=== PATIENT | female | born 1995 | race Caucasian/White ===

== ENCOUNTER 2024-08-24 15:40 | Emergency (ER) | payer BC, SELFPAY ==
[2024-08-24 15:45] VITALS: BP 126/90
[2024-08-24 17:20] LABS: Urine Albumin Negative (Neg - Trace); Urine Bilirubin Negative (Negative); Urine Character Clear (Clear); Urine Color Straw; Urine Glucose Negative (Negative); Urine Ketone Negative (Negative); Urine Leukocyte Negative (Negative); Urine Nitrite Negative (Negative); Urine Occult Blood Negative (Negative); Urine Specific Gravity 1.005 (<1.030); Urine Urobilinogen Negative (Neg - 1+)
[2024-08-24 17:27] LABS: % Basophils 0.3 % (0-2); % Eosinophils 0.9 % (0-6); % Immature Granulocytes 0.3 % (0-0.5); % Lymphocytes 27.8 % (20.5-51.1); % Neutrophils 65.7 % (42.2-75.2); Absolute Eosinophils 0.1 10^3/uL (0-0.7); Absolute Lymphocytes 3.2 10^3/uL (1.2-3.4); Absolute Monocytes 0.6 10^3/uL (0.1-0.6); Absolute Neutrophils 7.6 10^3/uL (1.4-6.5); Hematocrit 38.3 % (37.0-47.0); Hemoglobin 13.2 g/dL (12.0-16.0); Mean Corp Hgb Conc. 34.5 g/dL (33.0-37.0); Mean Corpuscular Hgb 32.4 pg (27.0-31.0); Mean Corpuscular Volume 93.9 fL (81.0-99.0); Mean Platelet Volume 10.4 fL (7.4-10.4); Nucleated Red Blood Cells % 0 %; Platelet Count 247 10^3/uL (130-400); Red Blood Cell Count 4.08 10^6/uL (4.20-5.40); Red Cell Dist. Width 12.8 % (11.5-14.5); White Blood Cell Count 11.5 10^3/uL (4.8-10.8)
[2024-08-24 17:46] LABS: ALT (SGPT) 20 U/L (0-35); AST (SGOT) 20 U/L (14-36); Albumin 4.3 g/dl (3.5-5.0); Alkaline Phosphatase 52 U/L (38-126); Blood Urea Nitrogen 8 mg/dl (7-17); Calcium 9.3 mg/dl (8.4-10.2); Carbon Dioxide 25 mmol/L (22-30); Chloride 106 mmol/L (98-107); Glucose 85 mg/dl (70-99); Potassium 4.2 mmol/L (3.5-5.1); Sodium 139 mmol/L (135-145); Total Bilirubin 0.3 mg/dl (0.2-1.3); Total Protein 6.9 g/dl (6.3-8.2); eGFR > 60.00
--- NOTE | 2024-08-24 17:59 | ED.GENMED ---
History of Present Illness
<JANIA Oneal - Last Filed: 08/24/24 18:56>
General
Chief Complaint: Vomiting Blood
Source: patient
Time Seen by Provider: 08/24/24 17:43
History of Present Illness
History of Present Illness:
Pt is a 28 yo F at 12 weeks gestation with no significant PMH who presents to the ED c/o hematemesis and hematuria x 1 day. Patient explains that she was dry heaving this morning and noticed once blood-tinged sputum produced from dry heave. When she
walked to the next room and urinated, she noticed a small blood clot in the toilet. She is following IVF treatment and is therefore considered 'high-risk'. She is feeling some lower abdominal cramping, mostly on her left side, which has
been constant throughout today, and she endorses some blurry vision sporadically throughout her , which her digital measurement advisor ([facility]) notes can be normal in . She denies any syncope, weakness, LARSEN, or other associated symptoms at this
time.
Review of Systems
<JANIA Oneal - Last Filed: 08/24/24 18:56>
Review of Systems
All Other Systems: ROS reviewed and negative except as documented in HPI and ROS
Phy Exam
<JANIA Oneal - Last Filed: 08/24/24 18:56>
General Physical Exam
General Presentation: well appearing
General age: appears stated age
Cardiovascular Exam
Cardiovascular Exam: regular rate/rhythm
Pulmonary Exam
Pulmonary Exam: lungs clear
Gastrointestinal Exam
Gastrointestinal Exam: normal bowel sounds and soft
Palpation: left upper quadrant: No tenderness, left lower quadrant: No tenderness, right upper quadrant: No tenderness and right lower quadrant: Minimal tenderness
Course
<JANIA Oneal - Last Filed: 08/24/24 18:56>
Orders/Labs/Results
Orders:
Orders
08/24/24 15:54
1st Trimester US [US 1st Trimester] Urgent
Comment:
Reason For Exam: abd cramping, blood tinged urine, 12 weeks pregnan
08/24/24 17:13
Urinalysis Reflex To Culture Urgent
Date Specimen was Collected: 08/24/24
Time Specimen was Collected: 15:56
08/24/24 17:18
Complete Blood Count/With Diff Urgent
Comprehensive Metabolic Panel Urgent
08/24/24 18:51
Type+Screen Urgent
08/24/24 19:01
* Blood Bank Products Urgent
Blood Bank Products: *Rhogam - Full Dose
Quantity: 300mg
Transfuse Today: Yes
Reason: Other
Other reason: Vaginal bleeding/miscarriage
Rho (D) Immune Globulin [Rhogam] 300 mcg IM ONCE ONE
08/24/24 19:13
ABO2 Urgent
BBK Wristband Number:
Associate notified that ABO2 has been ordered: [id number]
Date: 08/24/24
Time: 18:56
Researcher ID: [id number]
Abnormal Lab Results
08/24/24
17:18
WBC 11.5 H 10^3/uL
(4.8-10.8)
RBC 4.08 L 10^6/uL
(4.20-5.40)
MCH 32.4 H pg
(27.0-31.0)
Absolute Neuts (auto) 7.6 H 10^3/uL
(1.4-6.5)
Creatinine 0.5 L mg/dL
(0.6-1.0)
08/24/24 17:18
08/24/24 17:18
Vital Signs
Initial and Last Documented VS:
Initial Vital Signs
Temp Pulse Resp BP Pulse Ox
98.7 F 106 18 126/90 99
08/24/24 15:45 08/24/24 15:45 08/24/24 15:45 08/24/24 15:45 08/24/24 15:45
Last Documented Vital Signs
Temp Pulse Resp BP Pulse Ox
98.7 F 86 16 126/68 97
08/24/24 15:45 08/24/24 20:19 08/24/24 20:19 08/24/24 20:19 08/24/24 20:19
<Derrick Emerson, DO - Last Filed: 08/24/24 20:29>
Orders/Labs/Results
Orders:
Orders
08/24/24 15:54
1st Trimester US [US 1st Trimester] Urgent
Comment:
Reason For Exam: abd cramping, blood tinged urine, 12 weeks pregnan
08/24/24 17:13
Urinalysis Reflex To Culture Urgent
Date Specimen was Collected: 08/24/24
Time Specimen was Collected: 15:56
08/24/24 17:18
Complete Blood Count/With Diff Urgent
Comprehensive Metabolic Panel Urgent
08/24/24 18:51
Type+Screen Urgent
08/24/24 19:01
* Blood Bank Products Urgent
Blood Bank Products: *Rhogam - Full Dose
Quantity: 300mg
Transfuse Today: Yes
Reason: Other
Other reason: Vaginal bleeding/miscarriage
Rho (D) Immune Globulin [Rhogam] 300 mcg IM ONCE ONE
08/24/24 19:13
ABO2 Urgent
BBK Wristband Number:
Associate notified that ABO2 has been ordered: [id number]
Date: 08/24/24
Time: 18:56
Researcher ID: [id number]
Abnormal Lab Results
08/24/24
17:18
WBC 11.5 H 10^3/uL
(4.8-10.8)
RBC 4.08 L 10^6/uL
(4.20-5.40)
MCH 32.4 H pg
(27.0-31.0)
Absolute Neuts (auto) 7.6 H 10^3/uL
(1.4-6.5)
Creatinine 0.5 L mg/dL
(0.6-1.0)
08/24/24 17:18
08/24/24 17:18
Vital Signs
Initial and Last Documented VS:
Initial Vital Signs
Temp Pulse Resp BP Pulse Ox
98.7 F 106 18 126/90 99
08/24/24 15:45 08/24/24 15:45 08/24/24 15:45 08/24/24 15:45 08/24/24 15:45
Last Documented Vital Signs
Temp Pulse Resp BP Pulse Ox
98.7 F 86 16 126/68 97
08/24/24 15:45 08/24/24 20:19 08/24/24 20:19 08/24/24 20:19 08/24/24 20:19
<Derrick Emerson DO - Last Filed: 08/24/24 20:29>
MDM/Problems Addressed
Differential Diagnosis Includes:
Esophageal tear, hypovolemia, miscarriage, ectopic
MDM/Problems Addressed:
28-year-old female with episode of vaginal bleeding and hematemesis, likely due to esophageal tear from retching. Abdomen is benign. Ultrasound shows intrauterine . Patient is O- and will require RhoGAM. at 12 weeks.
<JANIA Oneal - Last Filed: 08/24/24 18:56>
*Critical Care Note
Total Time (30-74mins, 75-104mins- exclusive of procedures): Not Applicable
<Derrick Emerson DO - Last Filed: 08/24/24 20:29>
*Radiology
Radiology exam reviewed: radiology read reviewed (Ultrasound shows soto IUP 12 weeks 4 days FHT 152)
*Pulse Oximetry
Patient hypoxic: no
<Derrick Emerson, - Last Filed: 08/24/24 20:29>
Patient Management
Social determinants of health affecting care: Living situation and Strong social support
Escalation/DeEscalation of care consider admission/obs:
Admit indicated
ED Attending Note
<JANIA Oneal - Last Filed: 08/24/24 18:56>
-
Portions of this chart may have been created with voice recognition software.� Occasional wrong word or��sound alike� substitutions may have occurred due to the inherent limitations of voice recognition software.
<Derrick Emerson, - Last Filed: 08/24/24 20:29>
ED Attending Note
Patient seen and examined by attending physician: Yes
I performed a history and physical exam of patient and discussed management with resident, I reviewed resident's note and agree with documented findings and plan of care.: Yes
ED Attending Note:
I have reviewed and agree with history and treatment plan by Sumaya Lancaster. My exam revealed 28-year-old female in no acute distress, ab exam benign. RhoGAM shot and then discharged follow-up with FIELD SERVICE REP.
Discharge Plan
Departure
Patient Disposition: Home (Routine Discharge)
Date of Disposition: 08/24/24
Time of Disposition: 20:23
Patient with high blood pressure during this ER visit?: Yes
Condition: Good
Discharge Problem:
Miscarriage, threatened, early , Hematemesis with nausea, Need for rhogam due to Rh negative mother
Instructions: Nausea and Vomiting, Adult (DC), Bleeding in early - ED discharge instructions, BLOOD PRESSURE
Prescriptions:
New
ondansetron 4 mg tablet,disintegrating
4 mg PO Q8H PRN (Reason: nausea and vomiting) 4 Days Qty: 10 0RF
Referrals:
UNKNOWN - PT DOES,NOT KNOW [Family Provider] -
Activity Restrictions/Additional Instructions:
Follow-up with FIELD SERVICE REP and digital measurement advisor. Return for any concerns.
Interventions
Interventions:
*Risk Screen - Suicide Last Done: 08/24/24 15:45
*General Assessment Last Done: 08/24/24 15:45
*Neglect/Abuse Screening Last Done: 08/24/24 18:54
*ED- Fall Risk Assessment Last Done: 08/24/24 18:58
*ED COVID-19 Vaccine History Last Done: 08/24/24 18:58
AJ-Wdlpir-Fqtzfubspe Assessment Last Done: 08/24/24 18:53
ED- Cardiac Assessment Last Done: 08/24/24 18:53
ED- Pulmonary Assessment Last Done: 08/24/24 18:53
Discharge Date and Time
Print Language: [place]
[2024-08-24 18:58] VITALS: BMI 44.0
[2024-08-24] MEDS: RHOGAM 300 MCG IM (20:11)
[2024-08-24 20:19] VITALS: BP 126/68
[2024-08-24] MEDS: ZOFRAN ODT (ORALLY DISINTEGRATING) 4 MG PO (20:32)
== END 2024-08-24 20:45 | disposition home or self-care (01) ==
LOC: EMR 15:40
PROVIDERS: EMERGENCY PHYSICIAN Emergency Medicine
DX: O99.891 Other specified diseases and conditions complicating pregnancy (principal); O20.0 Threatened abortion; O99.611 Diseases of the digestive system complicating pregnancy, first trimester; K92.0 Hematemesis; O36.0910 Maternal care for other rhesus isoimmunization, first trimester, not applicable or unspecified; Z29.13 Encounter for prophylactic Rho(D) immune globulin; Z3A.12 12 weeks gestation of pregnancy
CPT/HCPCS: 96372; 99284; 76801; 80053; 81003; 85025; 86850; 86900; 86901; J2790

== ENCOUNTER → 2024-08-28 13:19 | Outpatient (REF) | payer BC, SELFPAY | LOC: PNTC 13:19 | PROVIDERS: ATTENDING PHYSICIAN Obstetrics & Gynecology | DX: Z36.0 Encounter for antenatal screening for chromosomal anomalies (principal); Z36.82 Encounter for antenatal screening for nuchal translucency | CPT/HCPCS: 76801; 76813 ==

== ENCOUNTER → 2024-09-23 06:50 | Outpatient (REF) | payer BC, SELFPAY | LOC: PNTC 06:50 | PROVIDERS: ATTENDING PHYSICIAN Obstetrics & Gynecology | DX: O09.819 Supervision of pregnancy resulting from assisted reproductive technology, unspecified trimester (principal) | CPT/HCPCS: 76805 ==

== ENCOUNTER 2024-09-29 09:26 | Emergency (ER) | payer BC, SELFPAY ==
[2024-09-29 09:30] VITALS: BP 145/76
[2024-09-29 09:53] LABS: % Basophils 0.2 % (0-2); % Eosinophils 1.2 % (0-6); % Immature Granulocytes 0.4 % (0-0.5); % Lymphocytes 16.7 % (20.5-51.1); % Monocytes 2.6 % (1.7-9.3); % Neutrophils 78.9 % (42.2-75.2); Absolute Eosinophils 0.1 10^3/uL (0-0.7); Absolute Immature Granulocytes 0.1 10^3/uL (0-0.05); Absolute Monocytes 0.3 10^3/uL (0.1-0.6); Absolute Neutrophils 9.5 10^3/uL (1.4-6.5); Hematocrit 36.7 % (37.0-47.0); Hemoglobin 12.6 g/dL (12.0-16.0); Mean Corp Hgb Conc. 34.3 g/dL (33.0-37.0); Mean Corpuscular Hgb 31.6 pg (27.0-31.0); Mean Platelet Volume 10.2 fL (7.4-10.4); Nucleated Red Blood Cells % 0 %; Platelet Count 235 10^3/uL (130-400); Red Blood Cell Count 3.99 10^6/uL (4.20-5.40); Red Cell Dist. Width 12.5 % (11.5-14.5)
[2024-09-29 10:19] LABS: ALT (SGPT) 24 U/L (0-35); AST (SGOT) 20 U/L (14-36); Albumin 3.6 g/dl (3.5-5.0); Alkaline Phosphatase 55 U/L (38-126); Blood Urea Nitrogen 9 mg/dl (7-17); Calcium 9.4 mg/dl (8.4-10.2); Carbon Dioxide 21 mmol/L (22-30); Chloride 110 mmol/L (98-107); Glucose 134 mg/dl (70-99); Potassium 3.9 mmol/L (3.5-5.1); Sodium 139 mmol/L (135-145); Total Bilirubin 0.3 mg/dl (0.2-1.3); Total Protein 6.2 g/dl (6.3-8.2); eGFR > 60.00
[2024-09-29 10:57] VITALS: BMI 41.6
[2024-09-29 11:10] LABS: Urine Albumin Negative (Neg - Trace); Urine Bilirubin Negative (Negative); Urine Character Clear (Clear); Urine Color Yellow; Urine Glucose Negative (Negative); Urine Ketone Negative (Negative); Urine Leukocyte Negative (Negative); Urine Nitrite Negative (Negative); Urine Occult Blood 3+ (Negative); Urine Urobilinogen Negative (Neg - 1+)
[2024-09-29 11:19] LABS: Urine Squamous Cell >30 /LPF (Few); Urine Urothelial Cell 0-2 /LPF (FEW)
[2024-09-29 11:21] LABS: Urine Red Blood Cell 0-2 /HPF (0-2)
--- NOTE | 2024-09-29 11:25 | ED.GENMED ---
History of Present Illness
General
Chief Complaint: Problems
Source: patient and spouse
Exam Limitations: none
Time Seen by Provider: 09/29/24 10:30
Nursing documentation reviewed up to this point in time: agreed with
History of Present Illness
History of Present Illness:
Patient G1, P0, currently 17 weeks via IVF, presents to ED secondary to intermittent episodes of noticing blood when wiping after urination, over the past 3 days. Prior to onset of her symptoms, patient does report engaging in sexual
intercourse with her partner. Denies fever or chills. Denies vomiting. Denies seeing blood clots or significant amount of blood in the toilet. Patient's last ultrasound was 1 week ago, which was normal. Patient has appointment with her [facility]
physician in 1 week. Denies coughing. Denies recent illness. Patient is still experiencing morning sickness, but has been able to eat. Denies weight loss. Denies back pain. Denies difficulty with urination.
Review of Systems
Review of Systems
Allergies reviewed?: Yes
All Other Systems: ROS reviewed and negative except as documented in HPI and ROS
Constitutional: Reports no symptoms
ABD/GI: Reports abdominal pain; Denies vomiting or bloody stools
: Reports bleeding; Denies dysuria, frequency or difficulty voiding
Musculoskeletal: Reports no symptoms
Skin: Reports no symptoms
Neurological: Reports no symptoms
Phy Exam
Physical Exam
Physical Exam:
Physical Exam
General: no apparent distress, not acutely ill. afebrile
Head: nc/at. eomi
Neck: supple. no meningeal signs.
Heart: s1/s2 regular rate and rhythm
Lungs: no acute respiratory distress. clear bilaterally
Abdomen: normal bowel sounds. not tender.
Neuro: alert and oriented x 3. no focal neurological deficits
Skin: no rash
Psychiatric: well kept. interactive and cooperative
Extremities: no edema. no calf tenderness.
Course
Orders/Labs/Results
Orders:
Orders
09/29/24 09:39
US Limited Urgent
Comment: for placement services
Reason For Exam: vaginal bleeding, 17 wks
09/29/24 09:43
Complete Blood Count/With Diff Urgent
Comprehensive Metabolic Panel Urgent
HCG, Beta Quantitative [Beta HCG Quantitative] Urgent
Is this a screen?: No
09/29/24 11:01
Urinalysis Reflex To Culture Urgent
Date Specimen was Collected: 09/29/24
Time Specimen was Collected: 10:57
Urine Microscopic Reflex Cult Urgent
09/29/24 12:47
Rho (D) Immune Globulin [Rhogam] 300 mcg IM ONCE ONE
Abnormal Lab Results
09/29/24 09/29/24
09:43 11:01
WBC 12.0 H 10^3/uL
(4.8-10.8)
RBC 3.99 L 10^6/uL
(4.20-5.40)
Hct 36.7 L %
(37.0-47.0)
MCH 31.6 H pg
(27.0-31.0)
Abs Immat Gran (auto) 0.1 H 10^3/uL
(0-0.05)
Absolute Neuts (auto) 9.5 H 10^3/uL
(1.4-6.5)
Neutrophils % 78.9 H %
(42.2-75.2)
Lymphocytes % 16.7 L %
(20.5-51.1)
Chloride 110 H mmol/L
(98-107)
Carbon Dioxide 21 L mmol/L
(22-30)
Creatinine 0.5 L mg/dL
(0.6-1.0)
Glucose 134 H mg/dl
(70-99)
Total Protein 6.2 L g/dl
(6.3-8.2)
Ur Occult Blood Reflex 3+ A
(Negative)
09/29/24 09:43
09/29/24 09:43
Vital Signs
Initial and Last Documented VS:
Initial Vital Signs
Temp Pulse Resp BP Pulse Ox
97.8 F 100 18 145/76 98
09/29/24 09:30 09/29/24 09:30 09/29/24 09:30 09/29/24 09:30 09/29/24 09:30
Last Documented Vital Signs
Temp Pulse Resp BP Pulse Ox
97.8 F 84 18 119/76 98
09/29/24 09:30 09/29/24 13:21 09/29/24 13:21 09/29/24 13:21 09/29/24 13:21
Information
Weeks gestation: N/A
Location: N/A
MDM/Problems Addressed
MDM/Problems Addressed:
Pelvic ultrasound report reviewed and discussed with patient and on-call [facility] physician, Dr. Grewal.
Patient evaluated in ED by Dr. Grewal, who feels that the patient can be discharged home at this time for an expected outpatient follow-up in the office. Otherwise, patient is afebrile, hemodynamically stable, and without any significant bleeding
during observation ED. Patient will be discharged in stable condition, to the care of her spouse.
*Pulse Oximetry
Patient hypoxic: no (98)
*Critical Care Note
Total Time (30-74mins, 75-104mins- exclusive of procedures): Not Applicable
ED Attending Note
-
Portions of this chart may have been created with voice recognition software.� Occasional wrong word or��sound alike� substitutions may have occurred due to the inherent limitations of voice recognition software.
Discharge Plan
Departure
Patient Disposition: Home (Routine Discharge)
Date of Disposition: 09/29/24
Time of Disposition: 13:37
Patient with high blood pressure during this ER visit?: Yes
Discharge Problem:
Vaginal bleeding
Instructions: Bleeding in early
Prescriptions:
No Action
ondansetron 4 mg tablet,disintegrating
4 mg PO Q8H PRN (Reason: nausea and vomiting) 4 Days Qty: 10 0RF
Referrals:
UNKNOWN - PT DOES,NOT KNOW [Family Provider]
Activity Restrictions/Additional Instructions:
As discussed, please follow-up with your [facility] physician for continual evaluation and treatment.
Interventions
Interventions:
*Risk Screen - Suicide Last Done: 09/29/24 09:30
*General Assessment Last Done: 09/29/24 09:30
*Neglect/Abuse Screening Last Done: 09/29/24 11:00
*ED- Fall Risk Assessment Last Done: 09/29/24 10:57
*ED COVID-19 Vaccine History Last Done: 09/29/24 10:57
*Nursing Disposition Last Done: 09/29/24 13:41
ED-Female Genitourinary Assessment Last Done: 09/29/24 10:59
Discharge Date and Time
Discharge Date/Time: 09/29/24 13:42
Print Language: [place]
[2024-09-29 13:21] VITALS: BP 119/76
--- NOTE | 2024-09-29 14:05 | CON.MD ---
Consultation - Medical
-
29-year-old G1, P0 female with LMP 04/22/2024, EDC 02/2125 presented at 17.2 weeks for evaluation due to vaginal bleeding. She contacted me yesterday reporting some brownish discharge with wiping after urination. Had intercourse 3 days prior. This
morning she used bathroom at 4:30 AM. Noticed some brown discharge with some red. It was only noticed with wiping. She has had cramping for several weeks and this has not been any different. Denies any abdominal pain. No dysuria.
Reports had flecks of blood in her urine several weeks ago and received RhoGAM at 13 weeks as a result.
course: IVF . BMI 43. RhoGAM candidate. Marginal cord insertion noted on 16-week ultrasound. had tetralogy of Fallot as well as ASD or VSD.
PMH: BMI 43, infertility
PSH: Angiography, hysteroscopy, tonsillectomy
NKDA
Medications: vitamins
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 She is . Denies tobacco, alcohol, drug use.
Family history: Mother thyroid disorder, maternal aunt-ovarian cancer.
ROS: Brownish vaginal discharge, no clotting no heavy bleeding. Positive mild cramping (consistent for weeks). Otherwise does not add.
Physical exam:
VSS, afebrile BP 119/76 pulse 84 respirations 18 temperature 97.8
Heart: Regular rate
Lungs: Clear bilaterally
Abdomen: Soft ND NT
Speculum exam: Very small amount of brown discharge noted near the cervical os. No bright red bleeding. Cervix is long thick and closed on inspection and examination.
Uterus is nontender.
Extremities: Without calf pain or tenderness.
Pelvic ultrasound: Single live intrauterine gestation in breech presentation. Placenta is located posteriorly and is free of the internal cervical os. No sonographic evidence for placental previa. heart rate measures 150 bpm. Amniotic
fluid level appears normal. Cervix measures 3.4 cm in length. Right and left ovaries normal in size and contain tiny follicles.
Impression/plan:
Intrauterine 17 weeks 2 days
Vaginal bleeding-suspect minor capillary bleeding. No evidence for abruption or previa. Reassurance provided to the patient. She received RhoGAM 4 weeks ago and should be covered by that dosing. She should keep her appointment as scheduled in
the office. She has a scheduled appointment in the next 10 days. She may be discharged to home. Reassurance provided. Patient appreciated me seeing her in the ER.
Time spent reviewing records,imaging/reports, history, face to face consultation and coordinating care was 40 min.
Consultation
-
Date/Time Consultation Requested: 09/29/2024 12:01 PM
Date/Time Consultation Performed: 09/29/2024 12:50 pm
Requesting Provider: Dr. Dixon
Performing Provider: Nyla Grewal DO
Reason for Consultation: 17 wk with bleeding
== END 2024-09-29 13:42 | disposition home or self-care (01) ==
LOC: EMR 09:26
PROVIDERS: Emergency Medicine; EMERGENCY PHYSICIAN Emergency Medicine; OTHER PHYSICIAN Obstetrics & Gynecology
DX: O46.92 Antepartum hemorrhage, unspecified, second trimester (principal); O32.1XX0 Maternal care for breech presentation, not applicable or unspecified; O36.0920 Maternal care for other rhesus isoimmunization, second trimester, not applicable or unspecified; Z3A.17 17 weeks gestation of pregnancy
CPT/HCPCS: 99284; 76815; 80053; 81003; 81015; 84702; 85025

== ENCOUNTER → 2024-10-22 06:54 | Outpatient (REF) | payer BC, SELFPAY | LOC: PNTC 06:54 | PROVIDERS: ATTENDING PHYSICIAN Obstetrics & Gynecology | DX: O09.819 Supervision of pregnancy resulting from assisted reproductive technology, unspecified trimester (principal) | CPT/HCPCS: 76811; 76817 ==

== ENCOUNTER → 2024-11-19 07:36 | Outpatient (REF) | payer BC, SELFPAY | LOC: PNTC 07:36 | PROVIDERS: ATTENDING PHYSICIAN Obstetrics & Gynecology | DX: O99.210 Obesity complicating pregnancy, unspecified trimester (principal); O09.819 Supervision of pregnancy resulting from assisted reproductive technology, unspecified trimester | CPT/HCPCS: 76816; 76817 ==

== ENCOUNTER → 2024-12-17 08:16 | Outpatient (REF) | payer BC, SELFPAY | LOC: PNTC 08:16 | PROVIDERS: ATTENDING PHYSICIAN Obstetrics & Gynecology; OTHER PHYSICIAN Obstetrics & Gynecology | DX: O99.210 Obesity complicating pregnancy, unspecified trimester (principal); O09.819 Supervision of pregnancy resulting from assisted reproductive technology, unspecified trimester | CPT/HCPCS: 36415; 76816; 86850; 86900; 86901; 96372; J2790 ==

== ENCOUNTER → 2025-01-14 08:46 | Outpatient (REF) | payer BC, SELFPAY | LOC: PNTC 08:46 | PROVIDERS: ATTENDING PHYSICIAN Obstetrics & Gynecology | DX: O09.813 Supervision of pregnancy resulting from assisted reproductive technology, third trimester (principal); O99.213 Obesity complicating pregnancy, third trimester; O43.193 Other malformation of placenta, third trimester | CPT/HCPCS: 76816 ==

== ENCOUNTER → 2025-01-28 08:54 | Outpatient (REF) | payer BC, SELFPAY | LOC: PNTC 08:54 | PROVIDERS: ATTENDING PHYSICIAN Obstetrics & Gynecology | DX: O99.213 Obesity complicating pregnancy, third trimester (principal); O09.813 Supervision of pregnancy resulting from assisted reproductive technology, third trimester; O43.193 Other malformation of placenta, third trimester | CPT/HCPCS: 59025; 76815 ==

== ENCOUNTER → 2025-02-04 08:12 | Outpatient (REF) | payer BC, SELFPAY | LOC: PNTC 08:12 | PROVIDERS: ATTENDING PHYSICIAN Obstetrics & Gynecology | DX: O09.813 Supervision of pregnancy resulting from assisted reproductive technology, third trimester (principal); O99.213 Obesity complicating pregnancy, third trimester; O43.193 Other malformation of placenta, third trimester | CPT/HCPCS: 59025; 76815 ==

== ENCOUNTER → 2025-02-11 08:09 | Outpatient (REF) | payer BC, SELFPAY | LOC: PNTC 08:09 | PROVIDERS: ATTENDING PHYSICIAN Obstetrics & Gynecology | DX: O99.213 Obesity complicating pregnancy, third trimester (principal); O09.813 Supervision of pregnancy resulting from assisted reproductive technology, third trimester; O43.193 Other malformation of placenta, third trimester | CPT/HCPCS: 59025; 76816 ==

== ENCOUNTER → 2025-02-18 08:41 | Outpatient (REF) | payer BC, SELFPAY | LOC: PNTC 08:41 | PROVIDERS: ATTENDING PHYSICIAN Obstetrics & Gynecology | DX: O99.213 Obesity complicating pregnancy, third trimester (principal); O09.813 Supervision of pregnancy resulting from assisted reproductive technology, third trimester; O43.193 Other malformation of placenta, third trimester | CPT/HCPCS: 59025; 76815 ==

== ENCOUNTER → 2025-02-25 08:53 | Outpatient (REF) | payer BC, SELFPAY | LOC: PNTC 08:53 | PROVIDERS: ATTENDING PHYSICIAN Obstetrics & Gynecology | DX: O09.813 Supervision of pregnancy resulting from assisted reproductive technology, third trimester (principal); O99.213 Obesity complicating pregnancy, third trimester; O43.193 Other malformation of placenta, third trimester | CPT/HCPCS: 59025; 76815 ==

== ENCOUNTER → 2025-03-04 08:57 | Outpatient (REF) | payer BC, SELFPAY | LOC: PNTC 08:57 | PROVIDERS: ATTENDING PHYSICIAN Obstetrics & Gynecology | DX: O09.813 Supervision of pregnancy resulting from assisted reproductive technology, third trimester (principal); O99.213 Obesity complicating pregnancy, third trimester; O43.193 Other malformation of placenta, third trimester | CPT/HCPCS: 59025; 76818 ==

== ENCOUNTER 2025-03-09 19:22 | Inpatient (IN) | payer BC, SELFPAY ==
[2025-03-09 20:01] VITALS: BP 114/74; BMI 45.8
[2025-03-09 20:51] LABS: Hematocrit 37.2 % (37.0-47.0); Hemoglobin 12.7 g/dL (12.0-16.0); Mean Corp Hgb Conc. 34.1 g/dL (33.0-37.0); Mean Corpuscular Volume 88.2 fL (81.0-99.0); Nucleated Red Blood Cells % 0 %; Platelet Count 223 10^3/uL (130-400); Red Cell Dist. Width 14.0 % (11.5-14.5)
[2025-03-09] MEDS: CYTOTEC 50 MICROGRAM PO (22:28)
[2025-03-09] MEDS: LR 1000 IV (22:28)
[2025-03-10] MEDS: PEPCID 40 MG PO (01:33)
[2025-03-10] MEDS: CYTOTEC PO ×3 (03:20→15:11)
[2025-03-10] MEDS: LR 1000 IV ×2 (03:32→07:38)
[2025-03-10] MEDS: CYTOTEC 50 MICROGRAM PO (06:32)
[2025-03-10] MEDS: PITOCIN 30 UNITS/NSS 500 ML IV ×2 (11:16→19:50)
[2025-03-10] MEDS: SUBLIMAZE 100 MCG EPIDURAL (12:32)
[2025-03-10] MEDS: FENTANYL/BUPIVACAINE 100 EPIDURAL (12:33)
[2025-03-10] MEDS: ZOFRAN 4 MG IV (14:47)
[2025-03-10] MEDS: MOTRIN 600 MG PO (22:01)
[2025-03-10] MEDS: TYLENOL 650 MG PO (22:02)
[2025-03-10] MEDS: PEPCID PO (22:10)
[2025-03-11] MEDS: MOTRIN 600 MG PO ×3 (07:11→20:59)
[2025-03-11] MEDS: TYLENOL 650 MG PO (07:11)
[2025-03-11] MEDS: COLACE 100 MG PO ×2 (08:24→20:00)
[2025-03-11] MEDS: RHOGAM 300 MCG IM (11:51)
[2025-03-11 14:04] LABS: Syphilis/T. pallidum Ab Reflex Negative (Negative)
[2025-03-11] MEDS: PEPCID 40 MG PO (20:59)
[2025-03-12] MEDS: MOTRIN 600 MG PO (04:29)
[2025-03-12] MEDS: COLACE 100 MG PO (08:29)
== END 2025-03-12 13:34 | disposition home or self-care (01) | DRG 807 ==
LOC: LDRP 19:22
PROVIDERS: ADMITTING PHYSICIAN Obstetrics & Gynecology; ATTENDING PHYSICIAN Advanced Practice Midwife; FAMILY PHYSICIAN Internal Medicine
PROC: 10E0XZZ Delivery of Products of Conception, External Approach (ICD-10-PCS; 2025-03-10)
PROC: 0KQM0ZZ Repair Perineum Muscle, Open Approach (ICD-10-PCS; 2025-03-10)
PROC: 0HQ9XZZ Repair Perineum Skin, External Approach (ICD-10-PCS; 2025-03-10)
PROC: 3E033VJ Introduction of Other Hormone into Peripheral Vein, Percutaneous Approach (ICD-10-PCS; 2025-03-10)
PROC: 10907ZC Drainage of Amniotic Fluid, Therapeutic from Products of Conception, Via Natural or Artificial Opening (ICD-10-PCS; 2025-03-10)
PROC: 3E0234Z Introduction of Serum, Toxoid and Vaccine into Muscle, Percutaneous Approach (ICD-10-PCS; 2025-03-11)
DX: O48.0 Post-term pregnancy (principal); Z37.0 Single live birth; Z3A.40 40 weeks gestation of pregnancy; O70.0 First degree perineal laceration during delivery; O70.1 Second degree perineal laceration during delivery
CPT/HCPCS: 85025; 85461; 86780; 86850; 86900; 86901; J2790